=== PATIENT | female | born 1995 | race Caucasian/White ===

== ENCOUNTER 2018-11-12 06:41 | Emergency (ER) | payer SELFPAY ==
[~2018-11-12 06:41] MED LIST: FUROSEMIDE 100 MG/10 ML VIAL IV ONE
[2018-11-12] MEDS ORDERED: KETOROLAC 30 MG/ML INJ ONE (07:38)
[2018-11-12 07:50] LABS: Urine Blood 2+ (NEG); Urine Glucose NEGATIVE (NEG); Urine Protein 1+ (NEG); Urine pH 6.5 (5.0-7.0)
[2018-11-12 07:52] LABS: Urine Bacteria 20-50 /HPF (<20); Urine Culture Reflex Order REFLEXED
--- NOTE | 2018-11-12 08:08 | EDPHYS ---
Physician Documentation [facility] Name: Elizabeth Rolle Age: 23 yrs Sex: Female : 1995 Arrival Date: 11/12/2018 Time: 06:44 Bed 7 Private MD: ED Physician Jose Mae HPI: 11/12 07:07 This 23 yrs old Female presents to ER via Ambulatory with complaints of Fever, Vomiting.kb 07:07 The patient presents with pain that is acute, with no known mechanism of injury. The kb symptoms are located in the low back. Onset: The symptoms/episode began/occurred last night. The pain does not radiate. Associated signs and symptoms: Pertinent positives: nausea, vomiting, Pertinent negatives: abdominal pain, chest pain, constipation, dysuria, fever, headache, hematuria, incontinence, numbness, tingling, urinary retention, weakness. The problem was sustained from unknown cause. Modifying factors: The patient symptoms are alleviated by nothing, the patient symptoms are aggravated by any movement. Severity of symptoms: At their worst the symptoms were moderate, in the emergency department the symptoms are unchanged. The patient has not experienced similar symptoms in the past. The patient has not recently seen a physician. 07:11 Pt reports she began vomiting at 1800 yesterday. States she laid in bed to get it to go kb away and started having low back pain at 2000. Denies nausea or vomiting since then. Reports she has continued having low back pain so that is the reason she came in this morning. denies injury or trauma. Denies radiation of pain.. 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 - Social history:: Smoking status: Patient/guardian denies using tobacco. - Ebola Screening: : No symptoms or risks identified at this time. ROS: 07:05 Constitutional: Negative for fever, chills, and weight loss, ENT: Negative for injury, kb pain, and discharge, Neck: Negative for injury, pain, and swelling, Cardiovascular: Negative for chest pain, palpitations, and edema, Respiratory: Negative for shortness of breath, cough, wheezing, and pleuritic chest pain, : Negative for injury, bleeding, discharge, and swelling, MS/Extremity: Negative for injury and deformity, Skin: Negative for injury, rash, and discoloration, Neuro: Negative for headache, weakness, numbness, tingling, and seizure. 07:05 Abdomen/GI: Positive for nausea and vomiting, Negative for abdominal pain, diarrhea, constipation, abdominal cramps, abdominal distension, anorexia. 07:07 Back: Positive for pain at rest, pain with movement, of the lumbar area. kb Exam: 07:06 Constitutional: This is a well developed, well nourished patient who is awake, alert, kb and in no acute distress. Head/Face: Normocephalic, atraumatic. ENT: Nares patent. No nasal discharge, no septal abnormalities noted. Tympanic membranes are normal and external auditory canals are clear. Oropharynx with no redness, swelling, or masses, exudates, or evidence of obstruction, uvula midline. Mucous membranes moist. Neck: Trachea midline, no thyromegaly or masses palpated, and no cervical lymphadenopathy. Supple, full range of motion without nuchal rigidity, or vertebral point tenderness. No Meningismus. Chest/axilla: Normal chest wall appearance and motion. Nontender with no deformity. No lesions are appreciated. Cardiovascular: Regular rate and rhythm with a normal S1 and S2. No gallops, murmurs, or rubs. Normal PMI, no JVD. No pulse deficits. Respiratory: Lungs have equal breath sounds bilaterally, clear to auscultation and percussion. No rales, rhonchi or wheezes noted. No increased work of breathing, no retractions or nasal flaring. Abdomen/GI: Soft, non-tender, with normal bowel sounds. No distension or tympany. No guarding or rebound. No evidence of tenderness throughout. Skin: Warm, dry with normal turgor. Normal color with no rashes, no lesions, and no evidence of cellulitis. MS/ Extremity: Pulses equal, no cyanosis. Neurovascular intact. Full, normal range of motion. Neuro: Awake and alert, GCS 15, oriented to person, place, time, and situation. Cranial nerves II-XII grossly intact. Motor strength 5/5 in all extremities. Sensory grossly intact. Cerebellar exam normal. Normal gait. 07:06 Back: pain, that is moderate, of the lumbar area. Vital Signs: 07:03 BP 125 / 86; Pulse 94; Resp 16 S; Temp 98(O); Pulse Ox 100% on R/A; Weight 81.65 kg bb (R); Height 5 ft. 1 in. (154.94 cm) (R); Pain 6/10; 08:00 BP 122 / 78; Pulse 84; Resp 15; Temp 98.1; Pulse Ox 100% on R/A; Pain 2/10; hb 07:03 Body Mass Index 34.01 (81.65 kg, 154.94 cm) bb MDM: 06:57 Patient medically screened. kb 07:06 Data reviewed: vital signs, nurses notes. Data interpreted: Pulse oximetry: on room air kb is 100 %. Interpretation: normal. 08:06 Counseling: I had a detailed discussion with the patient and/or guardian regarding: the kb historical points, exam findings, and any diagnostic results supporting the discharge/admit diagnosis, lab results, the need for outpatient follow up, a family practitioner, to return to the emergency department if symptoms worsen or persist or if there are any questions or concerns that arise at home. 11/12 07:11 Order name: Urine Microscopic Only; Complete Time: 08:05 kb 11/12 07:28 Order name: Urine Dipstick--Ancillary (enter results); Complete Time: 08:05 ag 11/12 07:28 Order name: Urine --Ancillary (enter results); Complete Time: 08:05 ag 11/12 07:54 Order name: Urine Culture [facility] 11/12 07:03 Order name: Urine Dipstick-Ancillary (obtain specimen); Complete Time: 07:22 kb Administered Medications: 07:22 Drug: TORadol 30 mg Route: IM; Site: right deltoid; hb 08:07 Follow up: Response: No adverse reaction; Pain is decreased hb 08:13 Drug: Macrobid 100 mg Route: PO; hb 08:13 Follow up: Response: Medication administered at discharge. hb Disposition: 11/12/18 08:07 Discharged to Home. Impression: Urinary tract infection, site not specified, Low back pain. - Condition is Stable. - Discharge Instructions: Urinary Tract Infection, Adult, [id number], Back Pain, Adult, [id number]. - Prescriptions for Macrobid 100 mg Oral Capsule - take 1 capsule by ORAL route every 12 hours for 7 days; 14 capsule. Cyclobenzaprine 10 mg Oral Tablet - take 1 tablet by ORAL route every 8 hours As needed; 21 tablet. Diclofenac Sodium 75 mg Oral Tablet, Delayed Release (E.C.) - take 1 tablet by ORAL route 2 times per day As needed; 30 tablet. - Medication Reconciliation Form, Thank You Letter, Antibiotic Education, Prescription Opioid Use form. - Follow up: Emergency Department; When: As needed; Reason: Worsening of condition. Follow up: Private Physician; When: 2 - 3 days; Reason: Recheck today's complaints, Continuance of care, Re-evaluation by your physician. Addendum: 11/16/2018 19:27 Co-signature as Attending Physician, Jose Mae MD. g s Signatures: Dispatcher [employer] EDMS Gregoria Hill, SUPERVISOR [employer]-C SUPERVISOR [employer]-Shireen Hensley RN RN Bianca Minaya RN RN Jose Mae MD MD Corrections: (The following items were deleted from the chart) 11/12 08:15 08:07 11/12/2018 08:07 Discharged to Home. Impression: Urinary tract infection, site hb not specified; Low back pain. Condition is Stable. Forms are Medication Reconciliation Form, Thank You Letter, Antibiotic Education, Prescription Opioid Use. Follow up: Emergency Department; When: As needed; Reason: Worsening of condition. Follow up: Private Physician; When: 2 - 3 days; Reason: Recheck today's complaints, Continuance of care, Re-evaluation by your physician. kb
--- NOTE | 2018-11-12 08:08 | ER ---
Nurse's Notes [facility] Name: Elizabeth Rolle Age: 23 yrs Sex: Female : 1995 Arrival Date: 11/12/2018 Time: 06:44 Bed 7 Private MD: Diagnosis: Urinary tract infection, site not specified;Low back pain Presentation: 11/12 07:01 Presenting complaint: Patient states: last night at approx 1800 she started vomiting bb she laid down then about 2000 she woke up with back pain and has not been able to sleep all night pt denies dysuria. Transition of care: patient was not received from another setting of care. Onset of symptoms was November 11, 2018. Risk Assessment: Do you want to hurt yourself or someone else? Patient reports no desire to harm self or others. Initial Sepsis Screen: Does the patient meet any 2 criteria? No. Patient's initial sepsis screen is negative. Does the patient have a suspected source of infection? No. Patient's initial sepsis screen is negative. Care prior to arrival: None. 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 - Social history:: Smoking status: Patient/guardian denies using tobacco. - Ebola Screening: : No symptoms or risks identified at this time. Screenin:15 Abuse screen: Denies threats or abuse. Denies injuries from another. Nutritional hb screening: No deficits noted. Tuberculosis screening: No symptoms or risk factors identified. Fall Risk None identified. Assessment: 07:15 General: Appears in no apparent distress. Behavior is calm, cooperative. Pain: Pain hb currently is 6 out of 10 on a pain scale. Neuro: Level of Consciousness is awake, alert, obeys commands, Oriented to person, place, time, situation. Cardiovascular: Capillary refill < 3 seconds Patient's skin is warm and dry. Respiratory: Airway is patent Respiratory effort is even, unlabored, Respiratory pattern is regular, symmetrical. GI: Abdomen is non-distended. : Reports right flank pain, nausea. EENT: No signs and/or symptoms were reported regarding the EENT system. Derm: Skin is intact, is healthy with good turgor. Musculoskeletal: No signs and/or symptoms reported regarding the musculoskeletal system. 08:14 Reassessment: Patient appears in no apparent distress at this time. Patient and/or hb family updated on plan of care and expected duration. Pain level reassessed. Patient is alert, oriented x 3, equal unlabored respirations, skin warm/dry/pink. Vital Signs: 07:03 BP 125 / 86; Pulse 94; Resp 16 S; Temp 98(O); Pulse Ox 100% on R/A; Weight 81.65 kg bb (R); Height 5 ft. 1 in. (154.94 cm) (R); Pain 6/10; 08:00 BP 122 / 78; Pulse 84; Resp 15; Temp 98.1; Pulse Ox 100% on R/A; Pain 2/10; hb 07:03 Body Mass Index 34.01 (81.65 kg, 154.94 cm) ED Course: 06:44 Patient arrived in ED. ag3 06:50 Gregoria Hill [facility]C [facility] kb 06:50 Jose Mae MD is Attending Physician. kb 07:03 Triage completed. bb 07:03 Arm band placed on Patient placed in an exam room, on a stretcher, on pulse oximetry. bb 07:15 Patient has correct armband on for positive identification. Bed in low position. Call hb light in reach. Side rails up X 1. 07:19 Urine Microscopic Only Sent. [id number] 07:30 Bianca Chang, RN is Primary Nurse. hb 08:14 No provider procedures requiring assistance completed. Patient did not have IV access hb during this emergency room visit. Administered Medications: 07:22 Drug: TORadol 30 mg Route: IM; Site: right deltoid; hb 08:07 Follow up: Response: No adverse reaction; Pain is decreased hb 08:13 Drug: Macrobid 100 mg Route: PO; hb 08:13 Follow up: Response: Medication administered at discharge. hb Outcome: 08:07 Discharge ordered by . kb 08:14 Discharged to home ambulatory. hb 08:14 Condition: stable 08:14 Discharge instructions given to patient, Instructed on discharge instructions, follow up and referral plans. medication usage, Demonstrated understanding of instructions, follow-up care, medications, Prescriptions given X 3. 08:15 Patient left the ED. Addendum: 11/16/2018 08:55 Addendum: Culture Results: Positive urine culture. No further action required. Bacteria s s sensitive to prescribed antibiotic. Signatures: Gregoria Hill, PINO-Peggy PRINGLE-Shireen Hensley RN RN bb Smirch, Shelby, RN RN ss Baxter, Heather, RN RN hb Gomez, Alice ag3 Diana Hill kj1
[2018-11-12] MEDS ORDERED: NITROFURAN MACRO 100 MG CAP PO ONE (08:25)
== END 2018-11-12 08:15 | disposition home or self-care (01) ==
LOC: ER 06:41
DX: N39.0 Urinary tract infection, site not specified (principal); E03.9 Hypothyroidism, unspecified
CPT/HCPCS: 81003; 81015; 81025; 87077; 87086; 87088; 87186; 96372; 99284